=== PATIENT | female | born 1945 | race American Indian/Alaskan Native ===

== ENCOUNTER 2016-10-01 13:06 | Outpatient (CLI) | payer MEDICARE ==
--- NOTE | 2016-10-01 15:18 | Mammography Report ---
BONE DENSITY STUDY: DEFINITIONS: BMD = Bone Mineral Density T-score = BMD related to mean peak bone mass of young adult (mean expressed in Standard Deviation) Z-score = Age matched BMD expressed in SD World Health Organization (WHO) Diagnostic Criteria Normal T-score > -1 SD Osteopenia T-score between -1 and -2.4 SD Osteoporosis T-score -2.5 SD or below FINDINGS: The weighted average BMD of lumbar spine L1-L4 is 0.875 with a T-score of -0.6. The weighted average BMD of left hip is 0.721 with a T-score of -1.8. The femoral neck BMD is0.580 and the T. guide your score is-2.4. Compared to her prior exam in September 2013 the overall BMD of the lumbar spine and left hip has improved except for the femoral neck. IMPRESSION: The patient's average T-score is diagnostic for osteopenia and average relative risk for fracture. Attention to femoral neck. NOTE: BMD is not the only risk factor for fracture; also consider factors such as the patient's age, risk of falling, previous osteoporotic fracture, family history of osteoporotic fractures, current smoker, and low body weight. Harp's triangle is a region of interest in femur, predominantly of trabecular bone. It is not a true anatomic site, and [facility] does not recommend its use clinically.
== END 2016-10-01 13:07 | disposition home or self-care (01) ==
LOC: SPVWC 13:06
PROVIDERS: ATTEND Family Medicine
DX: M85.88 Other specified disorders of bone density and structure, other site (principal)
CPT/HCPCS: 77080

== ENCOUNTER 2017-11-26 12:27 | Outpatient (CLI) | payer MEDICARE ==
--- NOTE | 2017-11-27 09:41 | Mammography Report ---
BILATERAL DIGITAL SCREENING MAMMOGRAM with CAD : 11/26/17 12:27:00 CLINICAL: Routine screening. COMPARISON:04/24/13 FINDINGS: The breasts are heterogeneously dense, which may obscure small masses.Bilateral benign arterial calcifications. No mass, architectural distortion or suspicious calcifications. IMPRESSION: No mammographic evidence of malignancy. BI-RADS CATEGORY: 2 -- Benign RECOMMENDATION: Routine mammographic screening in one year. COMMENT: Patient follow-up letters are generated by our [employer] application.
== END 2017-11-26 12:28 | disposition home or self-care (01) ==
LOC: SPVWC 12:27
PROVIDERS: ATTEND Family Medicine
DX: Z12.31 Encounter for screening mammogram for malignant neoplasm of breast (principal)
CPT/HCPCS: 77067

== ENCOUNTER 2018-12-25 12:51 | Outpatient (CLI) | payer MEDICARE ==
--- NOTE | 2018-12-25 15:29 | Mammography Report ---
BILATERAL DIGITAL SCREENING MAMMOGRAM with CAD : 12/25/18 12:51:00 CLINICAL: Routine screening. COMPARISON:11/26/17 FINDINGS: The breasts are heterogeneously dense, which may obscure small masses.Bilateral benign calcifications, some of which are vascular. No mass, architectural distortion or suspicious calcifications. IMPRESSION: No mammographic evidence of malignancy. BI-RADS CATEGORY: 2 -- Benign RECOMMENDATION: Routine mammographic screening in one year. COMMENT: Patient follow-up letters are generated by our [employer] application.
--- NOTE | 2018-12-25 15:38 | Mammography Report ---
BONE DEXA:12/25/18 12:51:00 CLINICAL: Postmenopausal. COMPARISON: 10/01/16 and 09/17/13 TECHNIQUE: Two site bone DEXA performed on an Hologic scanner. FINDINGS: The average BMD of the lumbar spine L1-L4 is 0.895g/cm squared with a T-score of -1.4 and a Z-score of +0.9. This compares to 0.875g/cm squared on the last exam and represents a +2.3% change from the last study and +7.9% change from baseline. The average BMD of the left hip is 0.687g/cm squared with a T-score of -2.1 and a Z-score of -0.5. This compares to 0.721g/cm squared on the last exam and represents a -4.8% change from the last study but a +2.1% change from baseline. The left femoral neck BMD is 0.564 g/cm squared with a T score -2.6 and a Z score of -0.6. IMPRESSION: 1. WHO classification: Osteopenia with increased fracture risk based on spine measurements. 2. WHO classification: Osteoporosis with high fracture risk based on left femoral neck measurements. 3. A modest improvement in spine BMD but a moderate decline in left hip BMD compared to the last exam. RECOMMENDATION: Clinical correlation and routine screening. DEFINITIONS: BMD = Bone Mineral Density T-score = BMD related to mean peak bone mass of young adult (mean expressed in Standard Deviation) Z-score = Age matched BMD expressed in SD World Health Organization (WHO) Diagnostic Criteria Normal T-score > -1 SD Osteopenia T-score between -1 and -2.4 SD Osteoporosis T-score -2.5 SD or below NOTE: BMD is not the only risk factor for fracture; also consider factors such as the patient's age, risk of falling, previous osteoporotic fracture, family history of osteoporotic fractures, current smoker, and low body weight. Z-scores are not calculated if >80 years of age.
== END 2018-12-25 12:52 | disposition home or self-care (01) ==
LOC: SPVWC 12:51
PROVIDERS: ATTEND Family Medicine
DX: Z12.31 Encounter for screening mammogram for malignant neoplasm of breast (principal); M81.0 Age-related osteoporosis without current pathological fracture; M85.88 Other specified disorders of bone density and structure, other site; Z78.0 Asymptomatic menopausal state
CPT/HCPCS: 77067; 77080